=== PATIENT | male | born 1930 | race Caucasian/White ===

== ENCOUNTER 2016-12-17 09:17 | Inpatient (IN) ==
--- NOTE | 2016-12-17 09:51 | Diag Imaging Result Doc PS360 ---
EXAM: CHEST-PORTABLE HISTORY: AMS TECHNIQUE: Portable upright AP COMPARISON: 09/21/2013 FINDINGS: The lungs are well expanded. The heart is not enlarged. The vessels are not distended. No pneumonia. No pleural effusions identified. IMPRESSION: Negative chest Electronically signed by González Barragan 12/17/2016 9:49 AM
[2016-12-17 09:55] LABS: ALLEN TEST YES; BE 6.5 mmoll (-3.0-3.0); BLOOD TYPE ARTERIAL; DRAW SITE L RADIAL; METHB 1.3 % (0.0-1.5); MODALITY ROOM AIR; PCO2(98.6) 44 mmHg (35-45); PO2(98.6) 77 mmHg (60-100); SAMPLE BLOOD; SAO2 97.6 % (95.0-100.0); THB 15.1 g/dL (11.5-17.4); pH(98.6) 7.46 (7.35-7.45)
--- NOTE | 2016-12-17 10:27 | Diag Imaging Result Doc PS360 ---
EXAM: CT HEAD W/O CONTRAST TECHNIQUE: Dose reduction protocol was used. INDICATION: AMS COMPARISON: 04/23/2014 FINDINGS: There is extensive patchy low attenuation in the periventricular and subcortical white matter compatible with advanced microangiopathy, stable. There is no definite acute infarct given the limited sensitivity of CT versus MRI. There is no discrete intracranial mass, mass effect, or intracranial hemorrhage. The surrounding soft tissues and bony structures are essentially unremarkable. IMPRESSION: Stable advanced chronic white matter changes. No evidence of acute intracranial pathology. Electronically signed by Eugenio Chapa 12/17/2016 10:25 AM
[2016-12-17 10:42] LABS: URINE MICRO REVIEW NEEDED? NO; URINE SOURCE CLEAN CATCH
[2016-12-17 10:44] LABS: MANUAL DIFF NEEDED? NO
[2016-12-17 10:47] LABS: BILIRUBIN URINE NEGATIVE (NEGATIVE); BLOOD URINE LARGE (NEGATIVE); COLOR YELLOW; GLUCOSE URINE NEGATIVE (NEGATIVE); LEUKOCYTES URINE LARGE (NEGATIVE); NITRITE URINE NEGATIVE (NEGATIVE); PH URINE 6.5; PROTEIN URINE TRACE mg/dL (NEGATIVE); SP GRAVITY URINE 1.017; TURBIDITY URINE HAZY (CLEAR); UR EPITHELIAL CELLS <10 /HPF (<10); URINE BACTERIA 4+ /HPF; URINE CULTURE NEEDED? YES; URINE RBC TNTC /HPF (<10); URINE WBC TNTC /HPF (<10); UROBILINOGEN URINE NORMAL (NORMAL)
[2016-12-17] MEDS ORDERED: ATIVAN IV ONE ×2 (10:50→12:58)
[2016-12-17 10:53] LABS: BASO% 0.3 % (0.0-0.8); EOS# 0.69 X1000 (0.0-0.7); EOS% 6.4 % (0.0-10.0); HEMATOCRIT 43.3 % (42.0-52.0); HEMOGLOBIN 14.6 g/dL (14.0-18.0); IMM GRAN# 0.03 X1000 (0.0-0.04); IMM GRAN% 0.3 % (0.0-0.5); LYMPH# 2.29 X1000 (1.2-3.4); LYMPH% 21.2 % (20.5-51.1); MCH 30.2 PG (27-31); MCHC 33.7 g/dL (33-37); MCV 89.6 FL (81-99); MONO# 0.72 X1000 (0.11-0.59); MONO% 6.7 % (1.7-9.3); MPV 10.4 FL (7.4-10.4); NEUT% 65.1 % (42.2-75.2); PLT 208 X1000 (130-400); RBC 4.83 XMIL (4.7-6.1)
[2016-12-17] MEDS ORDERED: ROCEPHIN 1 GM/NS 1 GM/50 ML IVPB IV ONE (10:59)
--- NOTE | 2016-12-17 11:03 | EKG Report ---
Test Performed on : 12/17/2016 10:19:38 AM Test Reason : AMS Blood Pressure : / mmHG Vent. Rate : 084 BPM Atrial Rate : 063 BPM P-R Int : 000 ms QRS Dur : 146 ms QT Int : 454 ms P-R-T Axes : 019 -56 110 degrees QTc Int : 536 ms Sinus rhythm. with AV dissociation. and Wide QRS rhythm. with frequent and consecutive premature marv tricular complexes. Left axis deviation Left bundle branch block Abnormal ECG When compared with ECG of 17-NOV-2016 08:30, Wide QRS rhythm. has replaced Sinus rhythm. Unconfirmed Result
[2016-12-17 11:18] LABS: INR 1.01; PROTIME 10.6 Seconds (9.2-11.7); PTT 24.7 Seconds (22.0-36.0)
[2016-12-17 11:21] LABS: AGAP 16; ALBUMIN 4.3 g/dL (3.5-5.0); ALKALINE PHOSPHATASE 56 U/L (32-122); BUN 30 mg/dL (8-22); CALCIUM 9.4 mg/dL (8.8-10.2); CHLORIDE 100 mmol/L (98-107); COSMO 293; GOT 31 U/L (10-34); GPT 32 U/L (10-44); MAGNESIUM 2.2 mg/dL (1.5-2.7); POTASSIUM 4.4 mmol/L (3.5-5.1); SODIUM 143 mmol/L (136-145); TCO2 27 mmol/L (25-35); TOTAL PROTEIN 6.9 g/dL (6.3-8.3)
[2016-12-17 11:28] LABS: CK PROFILE 236 U/L (24-204)
[2016-12-17 11:43] LABS: CK INDEX 1.3 (0.0-2.5); CK-MB 2.96 ng/mL (0.0-5.0)
--- NOTE | 2016-12-17 12:35 | PROVIDER DOCUMENTATION ---
This chart was entered by Torrie Bliss Scribe, acting as scribe for Antonio Irby MD. HPI-General Adult - General Chief Complaint: General Adult Stated Complaint: TREMORS Time Seen by Provider: 12/17/16 09:31 Source: patient Allergies/Adverse Reactions: Patient Allergies Allergy/AdvReac Type Severity Reaction Status Date / Time No Known Allergies Allergy Verified 12/17/16 09:37 Home Medications: Home Medication List Medication Instructions Recorded Confirmed Last Taken Type Nitroglycerin 0.4 mg SL DIRECTED PRN PRN 06/29/12 11/18/16 03/18/11 21:00 History Amlodipine [Norvasc] 5 mg PO DAILY #0 tablet 07/02/12 12/17/16 04/23/14 Rx Pregabalin [Lyrica] 50 mg PO HS #0 capsule 07/02/12 12/17/16 04/22/14 19:00 Rx Aspirin 81 mg PO BID 04/23/14 12/17/16 04/22/14 19:00 History LISINOpril [Prinivil] 10 mg PO BID #0 04/27/14 12/17/16 04/23/14 Rx Modafinil 200 mg PO BID PRN PRN 01/26/15 12/17/16 Unknown History Furosemide [Lasix] 40 mg PO BID 11/18/16 12/17/16 Unknown History Glimepiride [Glimepiride] 2 mg PO BID 12/17/16 12/17/16 Unknown History Lorazepam 0.5 mg PO PRN PRN 12/17/16 12/17/16 Unknown History Rosuvastatin Calcium [Rosuvastatin 10 mg PO QHS 12/17/16 12/17/16 Unknown History Calcium] Sitagliptin Phos/Metformin HCl 1 each PO DAILY 12/17/16 12/17/16 Unknown History [Janumet 50-1,000 mg Tablet] - History of Present Illness -Gen Adult Nature of Presenting Problems: Pt is a 86 year old male who came to the ED with a cc of tremors starting last night. Pt reports he was recently taken off of his parkinsons medications. Pt tremors have worsened. Location of Pain/Injury: reports: upper extremity Quality of Pain: reports: none Severity: reports: moderate Onset/Duration: reports: last night Timing: reports: still present Context/Activities at Onset: reports: none Modifying Factors: improves with: nothing Associated Symptoms: reports: trouble walking, other (tremors) Similar Symptoms Previously?: Yes Recently seen or treated by another doctor?: No Review of Systems - Adult - REVIEW OF SYSTEMS - ADULT Constitutional: denies: chills, fever Eyes: reports: no symptoms reported Ears, Nose, Mouth & Throat: denies: ear pain, throat swelling Cardiovascular: denies: orthopnea, syncope Respiratory: reports: no symptoms reported Gastrointestinal: reports: no symptoms reported Genitourinary: reports: no symptoms reported Musculoskeletal: reports: no symptoms reported Integumentary: reports: no symptoms reported Neurological: reports: tremors. denies: loss of balance, seizure Psychiatric: reports: no symptoms reported Endocrine: reports: no symptoms reported Hematologic/Lymphatic: reports: no symptoms reported Allergic/Immunologic: reports: no symptoms reported All Other Systems: Reviewed and Negative Past History - Adult - PAST MEDICAL HISTORY-ADULT Review of Records: reports: Old Records Reviewed, Nursing Assessment Review Cardiovascular: reports: blood clots (hx of deep venous thrombosis & pulmonary embolism), CAD, HTN Respiratory: reports: sleep apnea Genitourinary: reports: retention (urinary retention with elevated PSA), prostate cancer, other (Bladder problem) Neurological: reports: Parkinson's, other (Diabetic neuropathy) Endocrine/Immune: reports: Diabetes - PRIOR SURGERIES/PROCEDURES Surgical/Procedure History: reports: cardiac stent, orthopedic (extremity) ( internal fixation of the right ankle), joint replacement (knee replacement), other (transurethral resection of the prostates procedure) - IMMUNIZATION STATUS Childhood Immunizations: UTD - SOCIAL HISTORY Smoking: denies Substance Use: none/never Physical Exam-General - PHYSICAL EXAM-ADULT Initial Vital Signs Reviewed: Yes - CONSTITUTIONAL General Appearance: alert, mild distress - EYES Eyes: PERRL/EOMI, pink conjunctivae - HEAD, EARS, NOSE, MOUTH & THROAT HENMT: normocephalic/atraumatic, moist mucous membranes - NECK Neck: non-tender, full range of motion - RESPIRATORY Respiratory: chest non-tender, lungs clear, normal breath sounds - CARDIOVASCULAR Cardiovascular: normal peripheral pulses, regular rate, rhythm - GASTROINTESTINAL (ABDOMEN) Abdominal Exam: normal bowel sounds, non tender, soft - MUSCULOSKELETAL Back Exam: normal inspection, no CVA tenderness Extremity: normal range of motion, other (tremors of the upper extremities) - SKIN Integumentary: normal color, normal turgor - NEUROLOGIC Neurologic: grossly normal - PSYCHIATRIC Psych/Mental Status: normal mood/affect, normal thought content, normal thought process, oriented x 3 Progress - PLAN OF CARE/RESULTS Progress/Plan/Lab Results: Vital Signs - 8 hr 12/17/16 09:28 Temperature 98.4 F Pulse Rate 78 Respiratory Rate 20 Blood Pressure 145/89 O2 Sat by Pulse Oximetry 96 Orders Category Date Time Status Cardiac Monitoring DIRECTED Care 12/17/16 09:33 Active Finger Stick Blood Sugar (ED) DIRECTED Care 12/17/16 09:33 Active Saline Loc NOW Care 12/17/16 09:33 Active CHEST-PORTABLE [RAD] Stat Exams 12/17/16 09:[address] HEAD W/O CONTRAST [CT] Stat Exams 12/17/16 09:33 Ordered ABG [RESP] Routine Lab 12/17/16 09:33 Ordered ALCOHOL BLOOD Stat Lab 12/17/16 09:33 Uncollected BNP [PRO B-NATRIURETIC PEPTIDE] Stat Lab 12/17/16 09:34 Uncollected CBC WITH ELECTRONIC DIFF [HEME] Stat Lab 12/17/16 09:33 Uncollected CK PROFILE [SP CHEM] Stat Lab 12/17/16 09:33 Uncollected COMPREHENSIVE METABOLIC PANEL [CHEM] Stat Lab 12/17/16 09:33 Uncollected LACTATE, PLASMA [CHEM] Stat Lab 12/17/16 09:33 Uncollected MAGNESIUM [CHEM] Stat Lab 12/17/16 09:34 Uncollected PROTIME WITH INR [COAG] Stat Lab 12/17/16 09:33 Uncollected PTT [COAG] Stat Lab 12/17/16 09:33 Uncollected TROPONIN T Stat Lab 12/17/16 09:33 Uncollected URINALYSIS W/POSS RFLX CULT-1 [URINALYSIS] Stat Lab 12/17/16 09:33 Uncollected Pulse Oximetry Stat Oth 12/17/16 09:33 Active EKG [EKG] Stat Ther 12/17/16 09:33 Ordered Result Diagrams: 12/17/16 10:25 12/17/16 10:25 - REASSESSMENT Reassessment #1 Time Reassessed: 10:59 (Pt requested to drink water but was unable to swallow. ) Status: worsening Reassessment #2 Time Reassessed: 12:33 Status: improving (Pt's tremor improved after IV Ativan, but I had 2nd attempt for him to swallow some water, but he choked again. Will admit.) - EKG 1 Time of EKG reading by physician:: 10:19 EKG Read and Signed by:: Antonio Irby EKG Interpretation (*Must complete 3 of following elements*): Abnormal Rate: 84 (w AV dissociation and wide QRS rhythm w frequent and consecutive premature ventricular complexes; left axis deviation) Rhythm: sinus rhythm QRS: LBB - CONSULTS/PCP/HOSPITALIST Notification #1 *Consult/PCP/Hospitalist*: Hospitalist Time Discussed: 12:35 Consult Disposition: Will see in ED, Admit Departure - Departure Date of Disposition Decision: 12/17/16 Time of Disposition Decision: 12:34 DIAGNOSIS: UTI (urinary tract infection), Tremor, Trouble swallowing Disposition: ADMITTED INPATIENT 09 Certified Medical Emergency: Emergent Condition: Stable Referrals and Follow-Ups: Andry Turner DO [Primary Care Provider] - - Critical Care Note This patient required my direct & personal management of CC.: No Attestation - Physician/ RIC Attestation Patient care was provided by Advanced Practice Provider:: No The physician spent face to face time with patient:: Yes Advanced Practice Provider documentation review:: Supervising physician onsite and consulted in the evaluation and care of this patient. The physician did have a face to face encounter with the patient. This chart was documented by the indicated scribe, (Torrie Bliss Scribe) and accurately reflects the services I performed and decisions made by me, Antonio Irby MD, as attested by the provider's signature.
[2016-12-17] MEDS ORDERED: PROVIGIL PO PRN (18:05)
[2016-12-17] MEDS ORDERED: XYLOCAINE-MPF 1% INJ ONE (18:15)
[2016-12-17] MEDS ORDERED: ATIVAN IV PRN (18:17)
--- NOTE | 2016-12-17 21:34 | HISTORY AND PHYSICAL ---
ATTENDING PHYSICIAN: Dr. Andry Turner. ADMITTING PHYSICIAN: Dr. Andry Turner. CHIEF COMPLAINT: Tremulousness, altered mental status, and abnormal urine, suggestive of UTI, in this 86-year-old gentleman. HISTORY OF PRESENT ILLNESS: Mr. 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 Mr. Masterson was seen by myself yesterday in the Internal Medicine Clinic for hip pain, which he has had for several days. He rates the pain at 10/10. The pain comes and goes. Describes it as sharp. States it is like someone is stabbing him with a knife. He states that he was given tramadol by Dr. Ferris, and it does not help, but he continues to take the medication. He tell me that an x- ray of the hip failed to demonstrate anything, and therefore they were concerned that this may be axial disease involving a herniated disk. There was no numbness or weakness in the lower extremities. No history of fall or trauma. He also reported some twitching about the mouth, and some skin tags, which he was interested in getting taking care of. Yesterday, he was noted to be hemodynamically stable, with 114/58, pulse at 82, temperature at 98.5, at 220 pounds. The states this morning that she awoke with reports of the shaking all night. He was anticipated for an MRI of the lumbosacral spine today. However, they called and canceled that procedure, and called an ambulance instead. The reports that his speech was significantly slurred, and that there was a significant amount of involuntary tremor. He has only had water over the past 24 hours, and is complaining of being hungry. Upon presentation to the emergency room, his white blood cell count at 10.8, hemoglobin and hematocrit at 14.6 and 43.3, with platelets at 208,000. PT/INR unremarkable. Urine and blood cultures are pending. Urine is markedly abnormal, with trace proteinuria, large blood, leukocytes too numerous to count, and 4+ bacteria. He is empirically treated with a dose of Rocephin, urine and blood cultures pending, and is admitted to the floor for further observation and medical management. MEDICATIONS ON ADMISSION: Aspirin 81 mg once daily, modafinil 200 mg twice daily, Crestor 10 mg p.o. at bedtime, lisinopril 10 mg p.o. b.i.d., amlodipine 5 mg p.o. daily, Lasix 40 mg once daily, Janumet 5500 1 p.o. b.i.d., Lyrica 75 mg p.o. at bedtime, Amaryl 2 mg p.o. b.i.d., and tramadol 50 1-2 p.o. q.6-8 hours p.r.n. Medications being stopped at the time of admission, including: Tramadol, Lasix, and amlodipine. ALLERGIES: No known drug allergies. SOCIAL HISTORY AND FAMILY HISTORY: Father at 66 years old due to lymphoma. Mother at 99 secondary to old age. He is an only child. No brothers and no sisters. Patient is , with 4 children, 9 grandchildren, 2 great grandchildren. He has been since 1950. He is a nonsmoker, nondrinker. 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 PAST SURGICAL HISTORY: Prostate surgery with cryotherapy in [place] in 2005. Surgery in 2009 for osteoarthritis of the right knee, complicated by DVT. Hernia surgery in 1990. Knee surgery in 1995, with arthroscopy. Vocal cord growth in 1979. REVIEW OF SYSTEMS: Unremarkable, except that noted within the HPI. He does carry a diagnosis of diabetes, complicated by nephropathy, currently being managed with Amaryl and Janumet. There has been some discussion with regards to tremor, likely being parkinsonism-mediated. However, the patient insists that the medication is not beneficial, and the local neurologist obliged the patient and stopped the medication. I do think he would benefit from restarting this, and this has been discussed. He does have a history of coronary disease, per cardiac cath, with stent placements in the right coronary in 2008. Also, has issues with regards to cardiomyopathy and advanced valvular heart disease and pulmonary hypertension. His last annual exam of record is noted to be August 2015. PHYSICAL EXAMINATION: VITAL SIGNS: Blood pressure 155/95, temperature 98.4 degrees, respirations at 20. Patient saturating 99% on room air. Weight at 215. HEENT: Patient with some generalized some twitching, and then baseline tremor, both of the left upper extremity and left lower extremity. Some slurred speech is noted, but no evidence of facial droop. Oral mucosal membranes are noted to be extremely dry. NECK: Soft and supple, without lymphadenopathy or bruits. CARDIOVASCULAR: Regular rate. However, presence of systolic murmur, consistent with patient's valvular history. LUNGS: Decreased breath sounds bilaterally, without wheezes, rhonchi, or rales. ABDOMEN: Soft, with tenderness in the bilateral lower quadrants, without rebound, guarding, or rigidity. EXTREMITIES: Benign, without clubbing, cyanosis, or edema. NEUROLOGICAL: Resting tremor of the left upper and right lower extremity, which is exacerbated with movement. This is known to be present historically, and is not new. SKIN: Without petechiae, rash, or lesions. IMPRESSION: Tremor, thought to be acute illness-mediated, specifically urinary tract-related and dysarthria, which may be related to subacute infectious state. However, central etiologies should be considered. A CT scan of the head is unremarkable. Still maintaining an index of suspicion, with him having a history of prostate cancer. His most recent PSA in July of last year greater than 5.23, his highest to date. He is admitted to the Internal Medicine Service and empirically treated for a urinary tract infection. He received a dose of Rocephin in the emergency room, with blood cultures and urine cultures pending. We will continue to follow with regards to the variety of his other medical problems. I have also elected to restart the Sinemet, and will likely continue that at the time of discharge. He did not get his MRI this morning, as discussed yesterday in the clinic, considering his history of spondylosis dating back to 2010, and pain that is unlike any other pain that he has had in the past. We did discuss the possibility of repeating the MRI at some point during this hospitalization. However, we may have to defer and do this as an outpatient, as previously intended. DISPOSITION: The patient understands the course of treatment and plan. No further issues at this time. I did see the patient at the bedside, and the was in attendance, and was able to corroborate the history of the admission. TIME SPENT: Total time spent on the floor was more than 75 minutes in interview, exam, evaluation, dictation, and review of ER record. cc: Andry Turner DO
[2016-12-17] MEDS: LYRICA PO SCH (23:19)
[2016-12-17] MEDS: POTASSIUM CHLORIDE 10 MEQ in D5W 1,000 ML IV SCH (23:19)
[2016-12-17] MEDS: SINEMET 25/100 PO SCH (23:19)
[2016-12-17] MEDS: PRINIVIL PO SCH (23:20)
[2016-12-17] MEDS: CRESTOR PO SCH (23:20)
[2016-12-17] MEDS: ASPIRIN PO SCH (23:20)
[2016-12-18 06:22] LABS: MANUAL DIFF NEEDED? NO
[2016-12-18 06:31] LABS: BASO% 0.6 % (0.0-0.8); EOS% 9.8 % (0.0-10.0); HEMATOCRIT 41.6 % (42.0-52.0); HEMOGLOBIN 13.8 g/dL (14.0-18.0); IMM GRAN# 0.02 X1000 (0.0-0.04); IMM GRAN% 0.2 % (0.0-0.5); LYMPH# 2.03 X1000 (1.2-3.4); LYMPH% 24.8 % (20.5-51.1); MCH 29.9 PG (27-31); MCHC 33.2 g/dL (33-37); MONO# 0.81 X1000 (0.11-0.59); MONO% 9.9 % (1.7-9.3); MPV 10.2 FL (7.4-10.4); NEUT% 54.7 % (42.2-75.2); PLT 177 X1000 (130-400); RBC 4.62 XMIL (4.7-6.1)
[2016-12-18 07:03] LABS: AGAP 10; ALKALINE PHOSPHATASE 52 U/L (32-122); BUN 28 mg/dL (8-22); CALCIUM 8.9 mg/dL (8.8-10.2); CHLORIDE 99 mmol/L (98-107); COSMO 287; GOT 22 U/L (10-34); GPT < 5 U/L (10-44); POTASSIUM 4.6 mmol/L (3.5-5.1); SODIUM 140 mmol/L (136-145); TCO2 31 mmol/L (25-35); TOTAL BILIRUBIN 0.27 mg/dL (0.20-1.00); TOTAL PROTEIN 6.2 g/dL (6.3-8.3)
[2016-12-18 07:47] LABS: CK INDEX 0.9 (0.0-2.5); CK-MB 2.72 ng/mL (0.0-5.0)
[2016-12-18] MEDS: JANUVIA PO SCH (08:27)
[2016-12-18] MEDS: NORVASC PO SCH (08:28)
[2016-12-18] MEDS: ASPIRIN PO SCH ×2 (08:28→20:19)
[2016-12-18] MEDS: GLUCOPHAGE PO SCH (08:28)
[2016-12-18] MEDS: SINEMET 25/100 PO SCH ×2 (08:28→20:18)
[2016-12-18] MEDS: PRINIVIL PO SCH ×2 (08:29→20:20)
[2016-12-18] MEDS ORDERED: ROCEPHIN IM SCH (09:00)
[2016-12-18] MEDS ORDERED: ROCEPHIN IV SCH (09:00)
--- NOTE | 2016-12-18 09:28 | PROGRESS NOTE ---
DATE: 12/18/2016 Hospital day #2, date of rounds 12/18/2016. INDICATION FOR PROLONGED HOSPITALIZATION: Ongoing management for UTI, the patient having been admitted to the internal medicine service yesterday through the ER for shaking chills, elevated white blood cell count and abnormal urine. The urine and blood cultures are pending at this time. The patient looks subjectively better, more like his baseline. He has no complaints or concerns this morning other than wanting to go home and he did well overnight. VITAL SIGNS: This morning, blood pressure 147/76, respirations at 16, pulse at 62, temperature at 98.7 degrees, T-max 98.4 degrees. Ins and outs of 616 in and 840 out, for -224. MEDICATIONS: Reviewed, including Norvasc, aspirin, re-initiation of Sinemet, Rocephin, lisinopril, Ativan, Glucophage, Provigil, Lyrica, Crestor, and Januvia. PHYSICAL EXAMINATION: General: Exam this morning, the patient is alert, oriented, and again returning to his neurologic baseline. He is without complaints or concerns. HEENT: Unremarkable. Cardiovascular: Regular rate and rhythm. Lungs: Clear. Abdomen: Soft, nontender. Extremities: Benign without clubbing, cyanosis, or edema. Neurological: Cranial nerves 2-12 appear to be grossly intact. IMPRESSION: An 86-year-old, with episode of shaking chills and abnormal urine, accompanied by altered mental status yesterday presumed to be infectious mediated. The patient evaluated with a CT scan, found to be unremarkable. Chest x-ray found to be unremarkable. Blood and urine cultures are pending, but empirically started on Rocephin pending return of urinary and blood cultures. He is markedly better this morning and requesting consideration for discharge to home. However, I would like to see his urine culture and blood cultures return before making that decision. We will be discontinuing the Lara, allowing him to get up and ambulate ad-juan carlos. No additional recommendations or concerns at this time. Of interest, he did miss his MRI appointment for yesterday regarding low back pain. This certainly could of been urinary mediated. We will continue to follow clinically in that regard. No additional recommendations or concerns at this time. Note is dictated on the morning of rounds. cc: Andry Turner DO
[2016-12-18] MEDS: ROCEPHIN 1 GM/NS 1 GM/50 ML IVPB IV SCH (16:06)
[2016-12-18] MEDS: POTASSIUM CHLORIDE 10 MEQ in D5W 1,000 ML IV SCH (16:07)
[2016-12-18] MEDS: CRESTOR PO SCH (20:18)
[2016-12-18] MEDS: LYRICA PO SCH (20:18)
[2016-12-19 07:28] VITALS: BP 172/65
[2016-12-19] MEDS: PRINIVIL PO SCH (09:55)
[2016-12-19] MEDS: SINEMET 25/100 PO SCH (09:56)
[2016-12-19] MEDS: NORVASC PO SCH (09:56)
[2016-12-19] MEDS: JANUVIA PO SCH (09:56)
[2016-12-19] MEDS: ASPIRIN PO SCH (09:56)
[2016-12-19] MEDS: GLUCOPHAGE PO SCH (09:56)
[2016-12-19] MEDS: ROCEPHIN 1 GM/NS 1 GM/50 ML IVPB IV SCH (12:20)
--- NOTE | 2016-12-19 19:51 | DISCHARGE SUMMARY ---
ADMISSION DATE: 12/17/2016 DISCHARGE DATE: 12/19/2016 DISCHARGE DIAGNOSIS: 1. Urinary tract infection with culture pending at the time of discharge, the patient having received 2 days of IV Rocephin. He was admitted for altered mental status and had no signs of systemic inflammatory response syndrome, sepsis or bacteremia. Blood cultures are noted to be negative at the time of discharge. He will be discharged on Cipro 250 mg twice daily in anticipation of final results of culture. 2. Altered mental status. Likely multifactorial secondary to infectious process, use of tramadol for low back pain and recent cessation of dopamine. 3. Tremor, likely parkinsonism mediated with exacerbation with sensation of Sinemet. Re- initiation of Sinemet 25/100, 1/2 p.o. b.i.d. with general improvement in baseline tremor. 4. Dysphagia, presumed to be parkinsonism mediated. Intervally improved. The patient without swallowing difficulties at the time of discharge. 5. Lumbago with history of spondylosis, recent exacerbation of low back pain. Patient anticipated for magnetic resonance imaging next week as an outpatient with interval follow up in the clinic as previously scheduled. 6. Anemia not otherwise specified. This may be dilutional in nature. Discharge hemoglobin and hematocrit at 13.8 and 41.6. Outpatient followup is indicated. 7. History of diabetes, complicated by nephropathy. 8. History of prostate cancer, status post brachytherapy. DISCHARGE MEDICATIONS: Lyrica 50 mg p.o. at bedtime. Amlodipine 5 mg p.o. daily. Aspirin 81 mg p.o. b.i.d. Lisinopril 10 mg p.o. b.i.d. Modafinil 200 mg b.i.d. Lasix 40 mg twice daily. Amaryl 2 mg twice daily. Crestor 10 mg p.o. at bedtime. Ativan 0.5 mg p.o. daily p.r.n. Janumet one p.o. daily. Additional medications including Cipro 250 mg p.o. b.i.d. for 7 days and Sinemet 250/100, 1/2 tablet twice daily. PROCEDURES DURING ADMISSION: CT scan of the head in emergency room on admission for altered mental status: Advanced chronic white matter changes with no evidence of acute intracranial pathology. This is a noncontrasted CT scan. CONSULTATIONS DURING ADMISSION: None. HOSPITAL COURSE: Mr. Masterson presented to the emergency room on the 12/17 with altered mental status, tremor and abnormal urine, suggestive of UTI, but concern for SIRS/sepsis. He did not manifest a clinical criteria for those two entities; however, his urine was abnormal and did grow out organism which is pending at the time of discharge. He was started on IV Rocephin and transitioned to oral quinolone, specifically Cipro 250 mg twice daily at the time of discharge. With regards to his altered mental status, that seemed to clear rather expeditiously with fluids, initiation of IV antibiotics and time. Considering his tremor and marked response historically to dopamine replacement, it was felt that he would benefit from re-initiation of Sinemet. This was started at 25/10 1/2 tablet twice daily with general improvement in his tremor. I have recommended that he continue both with the Cipro and the Sinemet at the time of discharge with interval follow up. With regards to the MRI of his lumbosacral spine which he missed last week secondary to his admission, we will work towards getting that rescheduled this next week prior to seeing him later in the week and post hospital follow up. No new and/or additional recommendations at this time. DISPOSITION: Patient is released with interval follow-up anticipated in the next 7 days in the Internal Medicine Clinic as it relates to post hospital discharge as well as MRI follow up for low back pain. No additional recommendations or concerns. Patient understands the course of treatment and plan. Note is dictated on the morning of discharge. cc: Andry Turner DO
--- NOTE | 2016-12-20 07:20 | EKG Report ---
Test Performed on : 12/18/2016 06:19:48 AM Test Reason : CAD Blood Pressure : / mmHG Vent. Rate : 068 BPM Atrial Rate : 068 BPM P-R Int : 176 ms QRS Dur : 160 ms QT Int : 502 ms P-R-T Axes : 000 -53 114 degrees QTc Int : 533 ms Sinus rhythm. with premature atrial complexes. Left axis deviation Left ventricular hypertrophy with QRS widening and repolarization abnormality Possible Lateral infarct , age undetermined Abnormal ECG When compared with ECG of 17-DEC-2016 10:19, (Unconfirmed) Sinus rhythm. has replaced Wide QRS rhythm. Confirmed by Andry Turner DO ([id number]) on 12/20/2016 6:19:26 PM
== END 2016-12-19 11:28 | disposition home or self-care (01) ==
LOC: SUPCPDRO → ED 09:17 → 4N 14:05
PROVIDERS: ADMIT Internal Medicine; ATTEND Internal Medicine

== ENCOUNTER 2018-06-29 10:47 | Inpatient (IN) ==
--- NOTE | 2018-06-29 11:32 | EKG Report ---
Test Performed on : 06/29/2018 11:08:36 AM Test Reason : ams Blood Pressure : / mmHG Vent. Rate : 061 BPM Atrial Rate : 061 BPM P-R Int : 168 ms QRS Dur : 154 ms QT Int : 494 ms P-R-T Axes : 065 -53 116 degrees QTc Int : 497 ms Sinus rhythm. with marked sinus arrhythmia. with occasional premature ventricular complexes. Left axis deviation Left bundle branch block Abnormal ECG When compared with ECG of 30-MAY-2018 08:17, premature ventricular complexes. are now present premature supraventricular complexes. are no longer present Nonspecific T wave abnormality no longer evident in Inferior leads T wave inversion less evident in Lateral leads Unconfirmed Result
[2018-06-29 11:46] LABS: BASO# 0.02 X1000 (0.0-0.2); BASO% 0.2 % (0.0-0.8); EOS# 0.13 X1000 (0.0-0.7); EOS% 1.5 % (0.0-10.0); HEMATOCRIT 39.6 % (42.0-52.0); HEMOGLOBIN 13.1 g/dL (14.0-18.0); LYMPH# 1.24 X1000 (1.2-3.4); LYMPH% 14.6 % (20.5-51.1); MCH 29.3 PG (27-31); MCHC 33.1 g/dL (33-37); MCV 88.6 FL (81-99); MONO# 0.76 X1000 (0.11-0.59); MPV 10.4 FL (7.4-10.4); NEUT# 6.33 X1000 (1.4-6.5); NEUT% 74.7 % (42.2-75.2); PLT 154 X1000 (130-400); RBC 4.47 XMIL (4.7-6.1); RDW 12.7 % (11.5-14.5); WBC 8.48 X1000 (4.8-10.8)
[2018-06-29 11:55] LABS: PTT 26.5 Seconds (22.3-41.8)
--- NOTE | 2018-06-29 11:58 | Diag Imaging Result Doc PS360 ---
EXAM: CHEST-PORTABLE 06/29/2018 HISTORY: ams TECHNIQUE: AP portable at 1151 COMMENT: The interstitial pulmonary edema and alveolar opacity which was present on 05/02/2017 is no longer present. The inspiration is actually less optimal on the current examination. There is a cardiac loop recorder projected over the left heart. IMPRESSION: No evidence of acute disease. Electronically signed by Addy Vazquez 06/29/2018 11:55 AM
[2018-06-29 12:02] LABS: AGAP 11; ALB/GLOB RATIO 2.3; ALBUMIN 4.1 g/dL (3.5-5.0); ALKALINE PHOSPHATASE 64 U/L (32-122); BUN 22 mg/dL (8-22); CALCIUM 9.2 mg/dL (8.8-10.2); CHLORIDE 107 mmol/L (98-107); COSMO 294; CREATININE 0.8 mg/dL (0.7-1.2); ESTIMATED GFR > 60; GLUCOSE 199 mg/dL (70-104); GOT 33 U/L (10-34); GPT 51 U/L (10-44); POTASSIUM 4.4 mmol/L (3.5-5.1); SODIUM 143 mmol/L (136-145); TCO2 25 mmol/L (25-35); TOTAL PROTEIN 5.9 g/dL (6.3-8.3)
[2018-06-29 12:05] LABS: CK PROFILE 272 U/L (24-204)
--- NOTE | 2018-06-29 12:08 | Diag Imaging Result Doc PS360 ---
CT HEAD W/O CONTRAST - 06/29/2018 INDICATION: Head injury COMPARISON: 12/17/2016 FINDINGS: There is a new focal round hypodensity at the anterior pole of the left thalamus. Otherwise stable diffuse cerebral atrophy. Stable periventricular white matter chronic microvascular disease. The skull is intact. The sinuses are grossly clear. IMPRESSION: Possible recent lacunar infarction to the left thalamus. Consider further evaluation with a brain MRI. This exam was performed using automated exposure control, adjustment of mA or kV according to patient size, and/or use of iterative reconstruction technique Electronically signed by Geronimo Jonas 06/29/2018 12:05 PM
[2018-06-29 12:19] LABS: CK INDEX 1.1 (0.0-2.5); CK-MB 2.95 ng/mL (0.0-5.0)
[2018-06-29] MEDS ORDERED: SODIUM CHLORIDE 0.9% INJ ONE (13:04)
[2018-06-29] MEDS ORDERED: NS 1,000 ML IV ONE ×2 (13:04→18:00)
[2018-06-29] MEDS ORDERED: ASPIRIN PO ONE (13:04)
[2018-06-29] MEDS ORDERED: PEPCID IV ONE (13:04)
[2018-06-29] MEDS ORDERED: MORPHINE IV ONE (15:41)
[2018-06-29] MEDS ORDERED: ZOFRAN IV ONE (15:42)
[2018-06-29] MEDS ORDERED: NS 1,000 ML IV SCH (16:45)
[2018-06-29] MEDS ORDERED: ZOFRAN IV PRN (18:00)
--- NOTE | 2018-06-29 19:09 | HISTORY AND PHYSICAL ---
ATTENDING/ADMITTING PHYSICIAN: Andry Turner DO. CHIEF COMPLAINT: Left-sided eye ophthalmic CVA. HISTORY OF PRESENT ILLNESS: Mr. 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 History of spondylosis of the lumbosacral region; history of prostate cancer, history of pulmonary hypertension. History of parkinsonism. History of noncompliance with dietary regime. History of elevated liver enzymes. History of mitral valve disorder and aortic valve disorder. History of cognitive decline. History of cardiomyopathy, history of atherosclerotic peripheral vascular disease as well as atherosclerotic coronary artery disease. He presents to the emergency room via ambulance with the daughter and at the bedside. The history is such that he was at Dr. Roth's office receiving some balance testing on Tuesday for evaluation of vertigo that had been present for about 4 days. He was to complete 3 tests by 10:30 or 11 on Tuesday morning. He was noted to be more quiet than normal. He was still at the ENT office. They went out to lunch. He was unable to speak at that time, but was pointing to objects and he was subsequently unable to complete the remainder of the test at the [facility]. The family is concerned that there may have been some type of central event which happened during the morning of Tuesday. Last night, he went to the restroom locked the door behind him and was not found for several hours, perhaps up to 3 hours having been found down after reportedly falling off the commode and hitting his head. The was unable to get him up from lying on the floor provided him a comfortable mat in the bathroom and allowed him to spend the night on the floor. This morning, the son and daughter were unable to get the parent off the floor and 911 was called. He was brought into the emergency room. He underwent some initial diagnostic testing including labs, CT scan of the head and a chest x-ray. CT scan of the head compared to previous scan, and a new area in the left thalamic region was noted. I am uncertain with his prostate history, if this is truly an acute event or whether this might represent the potential for a metastatic lesion in the brain. Nevertheless, based on his neurologic deficit and likely inability to return home and return to previous quality of life, he is admitted to the internal medicine service for CVA with neurologic workup evaluation and recommendations for long- term placement versus rehab versus hospice. I have advised the family that he is not considered a candidate for discharge to home with interval follow up secondary to increased skill care and nursing needs. He will be admitted to the internal medicine service with final disposition after neurologic opinion. MEDICATIONS ON ADMISSION: Include modafinil 200 mg p.o. b.i.d., Co-Q10 100 mg once daily. Janumet one p.o. b.i.d., Amaryl 1 mg 1 p.o. b.i.d., amlodipine 5 mg p.o. daily. Lyrica 75 mg p.o. at bedtime. Plavix 75 mg for recent stenting in April 2017. Carvedilol 25 mg b.i.d., iron sulfate 325 mg once daily. Lisinopril 10 mg p.o. b.i.d., Sinemet 100/25, 1 p.o. b.i.d., bicalutamide 50 mg once daily. Lupron, Lasix 40 mg every other day. Vitamin B12 injection 1000 mcg as per clinic protocol. Eliquis 5 mg twice daily for paroxysmal atrial fibrillation. Rosuvastatin 10 mg once daily. FAMILY HISTORY: Father at 66, cause lymphoma. Mother at 99, cause old age. Brother as a child, cause unknown and no sisters. He is the sole living member of his family. SOCIAL HISTORY: Patient is , with 4 children, 2 girls and 2 boys and 17 grandchildren. He has been for 68 years as of 2019. He is a nonsmoker and nondrinker. He is fully retired from [employer] in June 2017. 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 Travel history is unremarkable. PAST SURGERY: Cataract surgery in 2012. Hernia surgery in 1990. Knee surgery in 1995. Right knee replacement in 2009. Prostate surgery with cryotherapy only in 2005. TURP in 2013. Ankle fracture with screws and pins in July 2013. Root canal in November 2016. Patient's last annual wellness visit noted to be October 2017 and last hand finisher physical noted to be January 2018. Patient having been recently seen in the Internal Medicine Clinic in early May for poorly controlled sugar, a random nonfasting sugar at 283. His hemoglobin A1c have been ranging between 6.8 and 7.5, as recently as January at 7.0 with an average blood sugar of 154. Patient reports that his sugar was elevated on the morning of presenting to Hematology-Oncology secondary to not being fasting. He was noted at that time to have a 9 pound weight gain since early April likely due to dietary and lifestyle indiscretion. REVIEW OF SYSTEMS: Is unremarkable except that noted within the HPI. Some additional findings including having seen the patient in early April for what he describes as facial twitching for several months, waking him up at night. He denied any drawing sensation or spasm involving the upper or lower extremities. An extensive workup from cardiology and neurology. It was uncertain as to whether this represented a primary neurologic and/or cardiology problem. He was subsequently seen about 4 to 5 days later with reports of facial twitching again, including MRIs of the brain, as well as carotid ultrasounds which were noted to be unremarkable. We talked about this being a component of parkinsonism. We talked about cranial nerve irritability and some type of electrolyte and/or medicine side effect. We did discuss the possibility of carbamazepine. He did report that the spasm was not painful, but becoming unpredictable and longer in its duration. He is unable to voice in the emergency room whether he has experienced anymore of these facial spasms or twitching and this history was not elicited directly from the family. A 12-point review of systems is otherwise unremarkable. He recently had a loop monitor placed for possible symptomatic bradycardia resulting in dizziness and presyncope. I am uncertain as to when his last interrogation was performed. VITALS: As per chart. LABORATORY: As per chart. PHYSICAL EXAMINATION: GENERAL: Bedside exam performed in the tucker in the emergency room. HEENT: Limited HEENT exam is noted. CARDIOVASCULAR: With irregularly irregular rhythm. LUNGS: Clear. ABDOMEN: Protuberant with nonspecific tenderness without rebound or guarding localizing to the right lower quadrant. EXTREMITIES: Benign, without clubbing, cyanosis, or edema. NEUROLOGIC: Motor strength appears to be equal bilaterally in the upper and lower extremities. Patient has no visual defect, both with uniocular and biocular vision. Cranial nerves 2-12 are not assessed. SKIN: Without petechiae, rash, or lesions. He does have a small 7-8 mm horizontal laceration on the left lateral spiritism, likely due to recent trauma. IMPRESSION: An 87-year-old, with history of fall, etiology is queried. It is uncertain as to whether this represents a vasovagal episode or true central event. He has a new findings on the CT scan which may represent a left-sided thalamic stroke. I am also concerned with his prostate cancer history, that this might represent a central metastatic lesion. RECOMMENDATIONS AND PLAN: He is already on a variety of anticoagulation including Eliquis for atrial fibrillation, clopidogrel for stenting approximately 12+ months ago and low dose aspirin. He also continues on statin therapy and multiple blood pressure medications. He will be admitted to the internal medicine service with neurologic consultation and opinion. I do feel that the cardiac echo and carotid ultrasounds will be of little benefit considering that he has had multiple cardiac and vascular studies over the past 6 to 12 months in investigation of his presyncopal symptoms. I do not think that the patient is a good candidate for returning to home and will be seeking rehab placement and/or long-term placement or further discussion with the family regarding home hospice. The daughter and understand the course of treatment and plan. No further issues at this time. Note is dictated on the evening of admission. cc: Andry Turner DO
[2018-06-29] MEDS: GLUCOPHAGE PO SCH (20:42)
[2018-06-29 20:47] LABS: URINE SOURCE CATH
[2018-06-29 20:56] LABS: BILIRUBIN URINE NEGATIVE (NEGATIVE); BLOOD URINE MODERATE (NEGATIVE); COLOR STRAW; GLUCOSE URINE NEGATIVE (NEGATIVE); KETONE URINE NEGATIVE (NEGATIVE); LEUKOCYTES URINE SMALL (NEGATIVE); NITRITE URINE NEGATIVE (NEGATIVE); PROTEIN URINE 50 mg/dL (NEGATIVE); TURBIDITY URINE CLEAR (CLEAR); UROBILINOGEN URINE NORMAL (NORMAL)
[2018-06-29 20:57] LABS: UR EPITHELIAL CELLS <10 /HPF (<10); URINE BACTERIA 1+ /HPF; URINE RBC 20-40 /HPF (<10); URINE WBC 20-40 /HPF (<10)
[2018-06-29] MEDS: SINEMET 25/100 PO SCH (21:06)
[2018-06-29] MEDS: PRINIVIL PO SCH (21:06)
[2018-06-29] MEDS: COREG PO SCH (21:07)
[2018-06-29] MEDS: CRESTOR PO SCH (21:07)
[2018-06-30 06:36] LABS: BASO# 0.02 X1000 (0.0-0.2); BASO% 0.2 % (0.0-0.8); EOS# 0.35 X1000 (0.0-0.7); EOS% 3.7 % (0.0-10.0); HEMATOCRIT 40.5 % (42.0-52.0); HEMOGLOBIN 13.1 g/dL (14.0-18.0); LYMPH# 1.77 X1000 (1.2-3.4); LYMPH% 18.9 % (20.5-51.1); MCH 29.4 PG (27-31); MCHC 32.3 g/dL (33-37); MCV 90.8 FL (81-99); MONO# 1.22 X1000 (0.11-0.59); MPV 10.5 FL (7.4-10.4); NEUT# 6.02 X1000 (1.4-6.5); NEUT% 64.2 % (42.2-75.2); PLT 160 X1000 (130-400); RBC 4.46 XMIL (4.7-6.1); WBC 9.38 X1000 (4.8-10.8)
[2018-06-30 06:42] LABS: INR 1.03; PROTIME 14.3 Seconds (11.0-16.0)
[2018-06-30 07:22] LABS: AGAP 11; ALB/GLOB RATIO 1.7; ALBUMIN 3.8 g/dL (3.5-5.0); ALKALINE PHOSPHATASE 63 U/L (32-122); BUN 18 mg/dL (8-22); CALCIUM 8.7 mg/dL (8.8-10.2); CHLORIDE 109 mmol/L (98-107); COSMO 293; CREATININE 0.8 mg/dL (0.7-1.2); ESTIMATED GFR > 60; GLUCOSE 145 mg/dL (70-104); GOT 25 U/L (10-34); IRON SATURATION 23 %; SODIUM 145 mmol/L (136-145); TCO2 25 mmol/L (25-35); TIBC 244 ug/dL; TOTAL BILIRUBIN 0.32 mg/dL (0.20-1.00); TOTAL IRON 56 ug/dL (53-167); TOTAL PROTEIN 6.1 g/dL (6.3-8.3); UNBOUND IRON 188 ug/dL (112-346)
[2018-06-30 07:23] LABS: GPT 14 U/L (10-44)
[2018-06-30 07:38] LABS: FERRITIN 82 ng/mL (30-400)
--- NOTE | 2018-06-30 08:37 | PROGRESS NOTE ---
DATE: 06/30/2018 INDICATION FOR PROLONGED HOSPITALIZATION: Status post left thalamic/lacunar infarct. Awaiting neurologic opinion, recommendations and final rehab disposition. OVERNIGHT EVENTS: Events overnight are unremarkable. Patient does appear to be somewhat more awake this morning, but still Anarthric. VITALS THIS MORNING: Blood pressure 146/45, pulse at 53, temperature at 97.8 degrees, T-max at 98.4 degrees, saturating 100% on nasal cannula. ADDITIONAL LABORATORIES: For this morning, white blood cell count 9.38, H and H at 13.1 and 40.5 with platelets at 160. PT/INR are unremarkable. Sodium 145, potassium 4.0, chloride 109, bicarbonate 25. BUN and creatinine at 18 and 0.8, glucose ranging between 145 and 199. Calcium at 8.7, iron panel is unremarkable. AST and ALT have normalized from admission 33 and 51 to 25 and 14 respectively. Triglycerides at 172, total cholesterol 134, HDL at 35, LDL at 74. Normal B 12. Urinalysis with evidence of protein and blood and 1+ bacteria. We will be ordering a culture and offering antibiotic for positive findings. PHYSICAL EXAMINATION: General: Patient is repositioned in bed, still uncommunicative, although he appears more alert. There are periods in the conversation where he appears to be more hypersomnolent. Cardiovascular: Irregularly irregular rhythm with a soft systolic murmur at the right upper sternal border. Lungs: Clear. Abdomen: With nonspecific tenderness in the bilateral lower quadrants, left greater than right. Extremities: Benign for clubbing cyanosis or edema. Neurologic: There does appear to be some spasticity of the left upper extremity, most noticeable in the hand. 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 I am uncertain as to whether this is a volitional difference. Negative Babinski's bilaterally. Neurological opinion pending at this time. DIAGNOSTICS: Additional studies pending at this time including carotids and cardiac echo. Most recent cardiac echo noted to be November of 2017 with evidence of systolic dysfunction with an EF at 45%, aortic valve sclerosis, mild mitral regurgitation. A bubble study performed was noted to be negative. Most recent carotid Doppler noted to be 09/17/2016, although he has had several outside of the facility. Evidence of peripheral vascular disease involving the distal common and internal carotid are noted, but without any evidence of hemodynamically compromising disease. Most recent MRI of the head is noted to be January of 2018 showing areas of micro hemorrhages perhaps secondary to amyloid angiopathy. No evidence at that time of intracranial metastatic disease. Last CT scan prior to this admission noted to be November of 2016. At that time, no definitive acute infarct. No discrete mass or mass effect. The area noted on admission CT scan within the anterior pole of the left thalamus is new when compared to historical study. Patient continues to be contraindication for further diagnostic imaging, such as an MRI secondary to recent implantation in May of a loop monitor. IMPRESSION: An 87 year old with acute left-sided thalamic infarct. Further neurologic opinion pending at this time. He is hemodynamically stable and does not appear to have neurologically digressed over the past 12 hours since admission. Further evaluation with followup echo and carotid ultrasound are pending at the time of dictation. Urinalysis for possible concurrent urinary tract infection is pending at the time of dictation. We will be adding a follow-up creatinine kinase to ensure resolution. I suspect that the creatinine kinase elevation on admission was secondary to a combination of his fall. Overall, prognosis is likely fair to poor considering his other comorbidities, including atrial fibrillation, systolic congestive failure, parkinsonism and prostate cancer. Conversation with the has included long-term placement versus an attempt at rehabilitation versus returning to home with home hospice. No further issues or recommendations at this time. The understands the course of treatment and plan. cc: Andry Turner DO
--- NOTE | 2018-06-30 12:40 | PROVIDER DOCUMENTATION ---
This chart was entered by Tomeka Caceres Scribe, acting as scribe for Deven Brennan MD. HPI-General Adult - General Chief Complaint: Altered Mental Status Stated Complaint: fall Time Seen by Provider: 06/29/18 11:03 Source: patient Allergies/Adverse Reactions: Patient Allergies Allergy/AdvReac Type Severity Reaction Status Date / Time No Known Allergies Allergy Verified 05/30/18 08:15 Home Medications: Home Medication List Medication Instructions Recorded Confirmed Last Taken Type Amlodipine [Norvasc] 5 mg PO DAILY #0 tablet 07/02/12 05/31/18 05/30/18 06:00 Rx Aspirin 81 mg PO DAILY 04/23/14 05/31/18 05/31/18 08:25 History LISINOpril [Prinivil] 10 mg PO BID #0 04/27/14 05/31/18 05/31/18 08:00 Rx Rosuvastatin Calcium 10 mg PO QHS 12/17/16 05/30/18 04/18/17 17:00 History Sitagliptin Phos/Metformin HCl 1 each PO BID 12/17/16 05/31/18 05/31/18 08:00 History [Janumet 50-1,000 mg Tablet] Carbidopa/Levodopa [Sinemet 25/100] 1 each PO BID 04/19/17 05/31/18 05/31/18 08: 00 History Carvedilol [Coreg] 25 mg PO BID 04/19/17 05/31/18 05/31/18 08:00 History Clopidogrel Bisulfate [Clopidogrel] 75 mg PO DAILY 04/19/17 05/31/18 05/30/18 08 :00 History Furosemide [Lasix] 40 mg PO DAILY 04/19/17 05/31/18 05/31/18 08:00 History Modafinil [Provigil] 200 mg PO BID 04/19/17 05/31/18 05/31/18 08:00 History Ubidecarenone [Co Q-10] 100 mg PO DAILY 04/19/17 05/31/18 05/31/18 08:00 History Ascorbic Acid [Vitamin C] 500 mg PO DAILY 05/30/18 05/31/18 05/31/18 08:00 History Bicalutamide 50 mg PO DAILY 05/30/18 05/31/18 05/31/18 08:00 History Garlic 1,000 mg PO DAILY 05/30/18 05/31/18 05/31/18 History Glimepiride [Amaryl] 1 mg PO BID 05/30/18 05/30/18 Unknown History Glucosamine/D3/Boswellia Yaa 1 each PO DAILY 05/30/18 05/31/18 05/31/18 08:00 History [Osteo Bi-Flex Caplet] Metformin [Glucophage] 500 mg PO BID CC 05/30/18 05/31/18 05/31/18 08:00 History Nitroglycerin [Nitrostat] 0.4 mg SL PRN PRN 05/30/18 05/31/18 Unknown History Pregabalin [Lyrica] 75 mg PO HS 05/30/18 05/31/18 05/30/18 20:00 History - History of Present Illness -Gen Adult Nature of Presenting Problems: 87 yowm presents to the ed via ems for fall last night and intermittent ams. pt last niht made him a pallet on the floor and pt slepted in the floor all night. on exam pt denies any pain and is alert to a/o x1. pt is pleasant and daughter is at bedside an is in waiting room. daughter sts pt has been more weak recently and has noticed the confusion and not wanting to speak as much Location of Pain/Injury: reports: generalized (weakness but no pain) Quality of Pain: reports: none Severity: reports: mild Onset/Duration: reports: last night Timing: reports: still present Context/Activities at Onset: reports: light activity Modifying Factors: improves with: nothing Associated Symptoms: reports: weakness, trouble walking. denies: arm pain, back /neck pain, chest pain, diarrhea, headaches, nausea, vomiting Similar Symptoms Previously?: Yes (pt has had frequent falls recently) Recently seen or treated by another doctor?: No Review of Systems - Adult - REVIEW OF SYSTEMS - ADULT ROS:: ROS per family Constitutional: denies: chills, fever Eyes: reports: no symptoms reported Ears, Nose, Mouth & Throat: reports: no symptoms reported Cardiovascular: denies: chest pain, palpitations Respiratory: denies: shortness of breath, wheezing Gastrointestinal: denies: abdominal pain, diarrhea, nausea, vomiting Genitourinary: reports: no symptoms reported Musculoskeletal: reports: muscle weakness. denies: back pain, neck pain Integumentary: reports: no symptoms reported Neurological: reports: loss of balance, tremors. denies: dizziness/vertigo, headache/migraines, slurred speech, syncope Psychiatric: reports: no symptoms reported Endocrine: reports: no symptoms reported Hematologic/Lymphatic: reports: no symptoms reported Allergic/Immunologic: reports: no symptoms reported All Other Systems: Reviewed and Negative Past History - Adult - PAST MEDICAL HISTORY-ADULT Review of Records: reports: Old Records Reviewed, Nursing Assessment Review, Medications Reviewed, Social history reviewed & non-contributory. Major Childhood Illnesses: reports: denies history Cardiovascular: reports: blood clots (hx of deep venous thrombosis & pulmonary embolism), CAD, HTN Respiratory: reports: sleep apnea Gastrointestinal: reports: GERD Genitourinary: reports: retention (urinary retention with elevated PSA), prostate cancer, other (Bladder problem) Musculoskeletal: reports: denies history Neurological: reports: Parkinson's, other (Diabetic neuropathy) Psychiatric: reports: denies history Endocrine/Immune: reports: Diabetes Diabetes Type: Type 2 Other Conditions: reports: denies history - PRIOR SURGERIES/PROCEDURES Surgical/Procedure History: reports: cardiac stent, orthopedic (extremity) ( internal fixation of the right ankle), joint replacement (knee replacement), other (transurethral resection of the prostates procedure) - IMMUNIZATION STATUS Childhood Immunizations: UTD Flu Vaccine: See Nurse Assessment - FAMILY HISTORY Family History: reviewed, not pertinent - SOCIAL HISTORY Smoking: denies Substance Use: denies Living Situation: family Physical Exam-General - PHYSICAL EXAM-ADULT Initial Vital Signs Reviewed: Yes - CONSTITUTIONAL General Appearance: appears well, alert, no apparent distress - EYES Eyes: PERRL/EOMI, pink conjunctivae - HEAD, EARS, NOSE, MOUTH & THROAT HENMT: moist mucous membranes - NECK Neck: non-tender, full range of motion, supple, normal inspection - RESPIRATORY Respiratory: chest non-tender, lungs clear, normal breath sounds - CARDIOVASCULAR Cardiovascular: normal peripheral pulses, bradycardia (59), irregularly irregular - GASTROINTESTINAL (ABDOMEN) Abdominal Exam: normal bowel sounds, non tender, soft - LYMPHATIC Lymphatic: no adenopathy - MUSCULOSKELETAL Back Exam: normal inspection Extremity: normal range of motion, normal inspection - SKIN Integumentary: normal color, normal turgor, warm/dry, abrasion(s) (left upper cheek) - NEUROLOGIC Neurologic: grossly normal, no motor/sensory deficits - PSYCHIATRIC Psych/Mental Status: normal mood/affect, normal thought content, normal thought process, oriented x 3 Progress - PLAN OF CARE/RESULTS Progress/Plan/Lab Results: Vital Signs - 8 hr 06/29/18 11:03 Temperature 97.4 F L Pulse Rate 59 L Respiratory Rate 16 Blood Pressure 162/79 O2 Sat by Pulse Oximetry 98 Result Diagrams: 06/29/18 11:15 06/29/18 11:15 - REASSESSMENT Reassessment #1 Time Reassessed: 12:43 Status: unchanged - EKG 1 Time of EKG reading by physician:: 11:08 EKG Read and Signed by:: Deven Brennan EKG Interpretation (*Must complete 3 of following elements*): Abnormal Rate: 61 Rhythm: sinus rhythm w/ sinus arrhythmia w/ occ pvc [place]: left (deviation) QRS: LBB, PVC's NV Interval: normal ST Wave: normal - XRAY 1 XRAY: Bilateral XRAY Study: Chest Impression: See EMR Report (EXAM: CHEST-PORTABLE 06/29/2018 HISTORY: ams TECHNIQUE: AP portable at 1151 COMMENT: The interstitial pulmonary edema and alveolar opacity which was present on 05/02/2017 is no longer present. The inspiration is actually less optimal on the current examination. There is a cardiac loop recorder projected over the left heart. IMPRESSION: No evidence of acute disease. Electronically signed by Addy Vazquez 06/29/2018 11:55 AM 06/29/18 1155 Interpreting Physician: Addy Vazquez MD Dictated Date/ Time: 06/29/18 1154 cc: Deven Brennan MD; Andry Turner DO) - CT/MRI 1 CT Study: Head Impression: See EMR Report (CT HEAD W/O CONTRAST - 06/29/2018 INDICATION: Head injury COMPARISON: 12/17/2016 FINDINGS: There is a new focal round hypodensity at the anterior pole of the left thalamus. Otherwise stable diffuse cerebral atrophy. Stable periventricular white matter chronic microvascular disease. The skull is intact. The sinuses are grossly clear. IMPRESSION: Possible recent lacunar infarction to the left thalamus. Consider further evaluation with a brain MRI. This exam was performed using automated exposure control, adjustment of mA or kV according to patient size, and/or use of iterative reconstruction technique Electronically signed by Geronimo Jonas 12:05 PM 06/29/18 1205 Interpreting Physician: Geronimo Jonas MD Dictated Date/Time: 06/29/18 1201 cc: Deven Brennan MD; Andry Turner DO) - CONSULTS/PCP/HOSPITALIST Notification #1 *Consult/PCP/Hospitalist*: dr turner pcp Time Discussed: 12:43 (pt is to weak to do ADL's) Reason/Comments: phone consult to admit Consult Disposition: Admit Departure - Departure Date of Disposition Decision: 06/29/18 Time of Disposition Decision: 12:55 DIAGNOSIS: Lacunar infarction, Weakness generalized, Atrial fib/flutter, transient Disposition: ADMITTED INPATIENT 09 Certified Medical Emergency: Emergent Condition: Stable Referrals and Follow-Ups: Andry Turner DO [Primary Care Provider] - - Critical Care Note This patient required my direct & personal management of CC.: No Attestation - Physician/ RIC Attestation Patient care was provided by Advanced Practice Provider:: No The physician spent face to face time with patient:: Yes Advanced Practice Provider documentation review:: Supervising physician onsite and consulted in the evaluation and care of this patient. The physician did have a face to face encounter with the patient. This chart was documented by the indicated scribe, (Tomeka Caceres Scribe) and accurately reflects the services I performed and decisions made by me, Deven Brennan MD, as attested by the provider's signature.
--- NOTE | 2018-06-30 12:56 | ECHO REPORT ---
ORDER DATE: 06/30/2018 INDICATION: CVA. FINDINGS: 1. Right atrium appears normal in size. 2. Mild tricuspid regurgitation. RV systolic pressure of 34. 3. Normal RV size and systolic function. 4. No significant pulmonic insufficiency. 5. Normal left atrial size with mild left atrial enlargement with a dimension of 4.2 cm and a volume index of 29. 6. No mitral valve prolapse. Mild mitral regurgitation. 7. Normal LV size, end-diastolic dimension of 4.4 cm. Mild left ventricular hypertrophy. The interventricular septal wall thickness is very difficult to measure, but the posterior wall appears to be 1.3 cm. Normal LV systolic function with an estimated EF of 55%. Definity echo contrast was used on this study. 8. Aortic valve appears somewhat sclerotic, but there does not appear to be any clear evidence of stenosis. The mean gradient was 8.3. The valve is trileaflet. There is trace insufficiency. 9. The aorta appears normal in visualized segments. 10. No pericardial effusion seen. cc: MD Andry Fischer DO
[2018-06-30] MEDS: NS 1,000 ML IV SCH (13:08)
[2018-06-30] MEDS: GLUCOPHAGE PO SCH ×2 (17:28→20:15)
[2018-06-30] MEDS: PRINIVIL PO SCH ×2 (17:29→21:26)
--- NOTE | 2018-06-30 19:28 | CONSULTATION ---
DATE OF CONSULTATION: 06/30/2018 HISTORY OF PRESENT ILLNESS: Mr. Masterson is 87 years old. History is taken from his attentive and daughter at the bedside and from review of available hospital records. There is a report of forgetfulness going on for at least a few years, more noticeable within the last year. He could not perform a ceremony properly a few years ago. He has been unable to provide accurate directions at times to familiar restaurants and to his bank. has taken over supervision of his medicines. He has had unsteady gait for some time. He has had several falls. He has hit his head but has never been knocked out unconscious. He has broken an ankle. He needs knee surgery, according to family. He had a predominantly right-sided tremor noticed sometime ago, possibly 10 years or longer ago. Eventually, there was a diagnosis of Parkinson disease, and he started Sinemet. Family is not sure when Sinemet dose was last changed. Hospital records show his current Sinemet dose at 25/100 b.i.d. Family does not recall him taking medicine for management of Parkinson disease other than Sinemet. Family believes he seemed improved when Sinemet was added, but they do not provide report of major benefit. He has had some dizziness, worse in recent months. There have been some features of vertigo. He was attending a session at [facility] 3 days ago. When he went in for that management, he was walking about as well as usual, carrying on appropriate conversation, and seemed to be himself mentally. When he came out of that testing, he required a little bit more help with gait, and he seemed withdrawn, not speaking spontaneously, answering direct questions only sometimes and only with very short responses. Daughter drove him to a restaurant and he sat down, seemed able to read the menu and choose what he wanted, but when the accounts payable administrator came, he pointed at the item rather than saying the words. He was able to communicate with head nods and gestures so that his options were chosen correctly. He did not eat. He had more difficulty getting up after that session at the restaurant. He did not complete the balance testing. At the restaurant, daughter reports he was able to bow his head and say an audible prayer, a rote prayer that he recites from memory automatically. He has seemed a little bit brighter at times today but still has not had a lot of verbal communication. DIAGNOSTIC DATA: Workup here includes noncontrast CT of the head showing diffuse ischemic change and report of left thalamic lacune which was not noted on 2017 scan. Family reports brain MRI done in [place] a year or so ago. They do not recall being told any specific significant findings after that scan. Lab shows slight anemia. Blood sugars 140s-190s. Nothing else remarkable on chemistry profile. MEDICATIONS: reports he has 18 medications. She supervises that closely, but cannot name them. She provides hi morning dose and sometimes allows him to take the evening dose on his own, but she always checks to make sure he took the dose. The current chart shows home medicines include carbidopa/levodopa 25/100 b.i.d. as above, amlodipine, vitamin C, aspirin 81 mg daily, bicalutamide, carvedilol, clopidogrel 75 mg daily, furosemide, garlic, glimepiride, glucosamine product, leuprolide, lisinopril, metformin, modafinil 200 mg b.i.d., nitroglycerin sublingual p.r.n. , Lyrica 75 mg at bedtime, rosuvastatin, Janumet, Co Q10. There are 20 items on the hospital computer home medication list. PHYSICAL EXAMINATION: Mr. Masterson is supine, awake, alert. He is attentive at times. He answered simple questions correctly. He followed simple commands. He followed commands requiring right/left distinction inconsistently. His speech is reasonable volume, not very parkinsonian, not significantly dysarthric. I did not test his cognitive function thoroughly. Head and neck are unremarkable. Visual vazquez are full based on gross confrontational finger counting. He has good lateral eye movement conjugately. Upgaze is diminished. Forehead wrinkling is symmetric. Lower facial motility appears equal, and the right nasolabial fold is deeper than the left, but right corner of the mouth often rides lower than the left. Tongue is midline. Palate is midline. Shoulder shrug is good bilaterally. Strength is normal in the arms and legs. Tone is symmetric. There is no cogwheeling or rigidity. I did not notice any tremor during my time at the bedside. He did well on [id number] testing. He responded to pinprick appreciation equally on the left and right. 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 Plantar responses silent bilaterally. Reflexes are absent at the ankles. I did not test his gait. IMPRESSION: 1. Recent reduced verbal communication. He was able to speak, apparently able to understand language, but simply did not respond verbally at the same level as baseline. He may have become withdrawn as part of the central nervous system syndrome with baseline dementia, parkinsonism, gait difficulty, and question of sensory overloads. There could be medication effect. At this point, I do not see anything definite. 2. Imaging evidence of widespread microischemic change and possible recent left thalamic lacune. This would not generally explain his recent change in verbal communication. He was apparently not truly anarthric and never truly unable to respond, but just did not respond verbally as much as his baseline. 3. Parkinsonism. If there has not been definite benefit with current antiparkinsonian regimen, we might reduce or hold Sinemet dose and follow clinically. If he appears more parkinsonian without Sinemet on board, Sinemet can be resumed. I do not know if he has had trials with other antiparkinsonian medications. 4. Baseline cognitive impairment, likely major neurocognitive disorder/ dementia. If he has not had previous trial, a cholinesterase inhibitor would be reasonable, when practical, not urgent. I would consider trying to reduce medicines before adding cholinesterase inhibitor. 5. I do not have any urgent suggestions. As above, would consider reducing or holding Sinemet, consider reducing or stopping any other medications that are not essential and then later consider cholinesterase inhibitor trial. I think it would be reasonable to plan a brain MRI when practical, not urgent, and we might get report from [facility] in [place] for comparison. If not checked recently as an outpatient, reasonable to screen for hypothyroidism in patient with mental decline, gait difficulty, periods of apparent withdrawal. Thanks for asking Neurology to see Mr. Masterson. cc: MD Andry Perera III, DO MTDD
[2018-06-30] MEDS: ASPIRIN PO SCH (20:14)
[2018-06-30] MEDS: PLAVIX PO SCH (20:15)
[2018-06-30] MEDS: LASIX PO SCH (20:15)
[2018-06-30] MEDS: NORVASC PO SCH (20:15)
[2018-06-30] MEDS: SINEMET 25/100 PO SCH ×2 (20:15→21:26)
[2018-06-30] MEDS: CASODEX PO SCH (20:16)
[2018-06-30] MEDS: COREG PO SCH ×2 (20:16→21:26)
[2018-06-30] MEDS: CRESTOR PO SCH (21:26)
[2018-07-01] MEDS: SINEMET 25/100 PO SCH ×2 (08:43→23:12)
[2018-07-01] MEDS: GLUCOPHAGE PO SCH (08:43)
[2018-07-01] MEDS: LASIX PO SCH (08:44)
[2018-07-01] MEDS: ASPIRIN PO SCH (08:44)
[2018-07-01] MEDS: PLAVIX PO SCH (08:54)
[2018-07-01] MEDS: CASODEX PO SCH (08:57)
[2018-07-01] MEDS: COREG PO SCH ×2 (12:03→23:12)
[2018-07-01] MEDS: PRINIVIL PO SCH ×2 (14:50→23:12)
[2018-07-01] MEDS: NORVASC PO SCH (14:54)
[2018-07-01] MEDS: NS 1,000 ML IV SCH ×2 (17:16→18:52)
[2018-07-01] MEDS ORDERED: NOVOLOG MIX 70/30 SUBQ SCH (18:30)
--- NOTE | 2018-07-01 18:31 | PROGRESS NOTE ---
DATE: 07/01/2018 INDICATION FOR PROLONGED HOSPITALIZATION: Ongoing evaluation for acute neurologic decline thought to be due to left thalamic infarct. I very much appreciate the opinion of neurology. Clinical note dated 06/29 is reviewed at the bedside with the patient and friends of the family. Neurologic consultative note is reviewed at the bedside with the patient's and friends of the family. Cardiac echocardiogram is obtained demonstrating mild TR, mild MR and some early aortic sclerotic changes without stenosis. PA pressure at 34, mild left atrial enlargement, mild LVH, EF at 55%, no evidence of pericardial effusion is noted. Additional laboratory including outstanding urinalysis is positive for 30,000 to 40,000 colony-forming units of gram-positive cocci. VITALS: Blood pressure 187/40, respirations at 18, pulse at 66, temperature at 97.6 degrees, T- max at 98.6 degrees, saturating 96% on room air, alex at 91% earlier this morning at 8:39. Telemetry strips are reviewed demonstrating the presence of sinus rhythm with 1st degree AV block, increased PACs. There is a 8 beat run of nonsustained ventricular tachycardia which is noted at 2333, no report of symptomatology. I's and O's 1214 in and 900 out for +314. Patient is noted to have pulled out his Lara. We will be abstaining from replacing this. PHYSICAL EXAMINATION: HEENT: Unremarkable. Cardiovascular: Irregularly irregular versus sinus with increased ectopy. Lungs: Clear but shallow breath sounds are appreciated. Abdomen: Soft without areas of guarding or rebound. Extremities: Benign without clubbing, cyanosis, or edema. IMPRESSION: 87-year-old with radiographic findings suggestive of acute versus subacute left thalamic event. Again I have reiterated to the family I am uncertain as to whether this truly represents a cerebrovascular accident or whether this might be indicative of metastatic lesion to the brain. I appreciate neurology's opinion and insight. I do think that based on his historical benefit from the initiation of dopamine agonist we will continue with the Sinemet, but I did express to the patient and the that further titration off of nonessential medications may be of benefit. His hemoglobin A1c noted to be 7.0 with an estimated/average blood glucose at 154 mg/dL. Historical hemoglobin A1c dating back to 2013 are noted to be 7.1, 7.1 and current admission at 7.0. We will continue to follow clinically. We discussed placement either at rehab or long-term placement versus returning to home with hospice. Will continue to follow clinically in this regard. There are no new and/or additional recommendations. Initiation of Rocephin 1 g daily 1st dose tonight. The and patient understand the course of treatment and plan. No further issues at this time. Note is dictated on the evening of admission. cc: Andry Turner DO
[2018-07-01] MEDS: ROCEPHIN 1 GM in NS 50 ML IV SCH (18:50)
[2018-07-01] MEDS: CRESTOR PO SCH (23:12)
[2018-07-02] MEDS: NOVOLOG MIX 70/30 SUBQ SCH ×3 (08:10→17:16)
[2018-07-02] MEDS: SINEMET 25/100 PO SCH ×2 (08:57→20:53)
[2018-07-02] MEDS: CASODEX PO SCH (08:57)
[2018-07-02] MEDS: COREG PO SCH ×2 (08:57→20:53)
[2018-07-02] MEDS: NS 1,000 ML IV SCH ×2 (08:57→13:11)
[2018-07-02] MEDS: PRINIVIL PO SCH ×2 (08:57→20:53)
[2018-07-02] MEDS: PLAVIX PO SCH (08:57)
[2018-07-02] MEDS: NORVASC PO SCH (08:57)
[2018-07-02] MEDS: LASIX PO SCH (08:57)
[2018-07-02] MEDS: ASPIRIN PO SCH (08:57)
[2018-07-02] MEDS ORDERED: INSULIN PEN NEEDLES ONE (09:08)
[2018-07-02] MEDS: ROCEPHIN 1 GM in NS 50 ML IV SCH (18:04)
[2018-07-02] MEDS: CRESTOR PO SCH (20:53)
[2018-07-03] MEDS: NS 1,000 ML IV SCH ×3 (05:13→16:17)
--- NOTE | 2018-07-03 07:22 | EKG Report ---
Test Performed on : 07/01/2018 06:34:47 AM Test Reason : PAF history, NSR with marked ectopy, bradycardia Blood Pressure : / mmHG Vent. Rate : 065 BPM Atrial Rate : 065 BPM P-R Int : 174 ms QRS Dur : 154 ms QT Int : 502 ms P-R-T Axes : 065 -59 109 degrees QTc Int : 522 ms Sinus rhythm. with premature atrial complexes. Left axis deviation Left bundle branch block Abnormal ECG When compared with ECG of 29-JUN-2018 11:08, (Unconfirmed) premature ventricular complexes. are no longer present premature atrial complexes. are now present Unconfirmed Result
--- NOTE | 2018-07-03 07:33 | PROGRESS NOTE ---
DATE: 07/03/2018 The patient was seen yesterday morning but no progress note was dictated. This morning, the patient is found resting. Evening rounds will be performed with a short addendum. The patient is noted to have positive Enterococcus faecalis findings on urinalysis, although less than 50,000 colony-forming units were noted. He was empirically started on Rocephin. We will be transitioning him to Levaquin orally 500 mg once daily for 5 days. We will continue to follow in this regard. He has remained somewhat hypertensive, his blood pressure as high as 188/86. We have also recently transitioned him to b.i.d. fixed dose insulin at 5 units. Laboratory, specifically glucoses ranging between 158 up to 278, we will be adjusting that to 7 units b.i.d. It has been several days since he has had laboratory. A CMP and a CBC will be ordered, as well as a chest x-ray and EKG. I anticipate placement over the next 24 to 48 hours regarding poststroke event. The exact facility is uncertain at this time. I did discuss with the son and the patient yesterday options including a [facility] facility, a local facility, and/or long-term placement. I certainly feel that rehab would be appropriate. However, should the patient continue to decline clinically, then long-term placement and/or home hospice may be a more appropriate option. We will await any further recommendations today. I suspect that there is bed availability today or tomorrow. The patient will likely be discharged. There are no new and/or additional recommendations at this time. Evening rounds with additional comment are likely to follow. cc: Andry Turner DO
[2018-07-03 08:49] LABS: AGAP 11; ALB/GLOB RATIO 1.6; ALBUMIN 3.5 g/dL (3.5-5.0); ALKALINE PHOSPHATASE 58 U/L (32-122); BUN 25 mg/dL (8-22); CALCIUM 8.6 mg/dL (8.8-10.2); CHLORIDE 107 mmol/L (98-107); COSMO 294; CREATININE 0.9 mg/dL (0.7-1.2); ESTIMATED GFR > 60; GLUCOSE 184 mg/dL (70-104); GOT 28 U/L (10-34); GPT 25 U/L (10-44); POTASSIUM 3.3 mmol/L (3.5-5.1); SODIUM 143 mmol/L (136-145); TCO2 25 mmol/L (25-35); TOTAL BILIRUBIN 0.19 mg/dL (0.20-1.00); TOTAL PROTEIN 5.7 g/dL (6.3-8.3)
[2018-07-03] MEDS: LEVAQUIN PO SCH (10:33)
[2018-07-03] MEDS: LASIX PO SCH (10:33)
[2018-07-03] MEDS: SINEMET 25/100 PO SCH ×2 (10:33→21:39)
[2018-07-03] MEDS: NORVASC PO SCH (10:33)
[2018-07-03] MEDS: COREG PO SCH ×2 (10:33→21:39)
[2018-07-03] MEDS: CASODEX PO SCH (10:33)
[2018-07-03] MEDS: ASPIRIN PO SCH (10:34)
[2018-07-03] MEDS: PLAVIX PO SCH (10:36)
[2018-07-03] MEDS: PRINIVIL PO SCH ×2 (10:36→21:39)
[2018-07-03] MEDS ORDERED: NOVOLOG MIX 70/30 SUBQ SCH (17:00)
--- NOTE | 2018-07-03 18:47 | PROGRESS NOTE ---
DATE: 07/03/2018 INDICATION FOR PROLONGED HOSPITALIZATION: Awaiting rehab versus long-term placement. Patient having had a left thalamic CVA. He is clinically improved and hemodynamically stable at this time. He was transitioned off of Rocephin to Levaquin based on Enterococcus positive UTI. No complaints or concerns this evening. The is at the bedside with the patient. VITAL SIGNS: Blood pressure 152/60, pulse at 52, temperature at 97.5 degrees, saturating 93% on room air. Cumulative I's and O's for this hospitalization, 5,873 in and 4,610 out for +1,263. LABORATORY: Additional laboratory obtained this morning, primarily a chemistry demonstrating sodium 143, potassium at 3.3. Magnesium is pending, if available. Chloride 107, bicarb 25, BUN and creatinine at 25 and 0.9. Sugars are ranging between 143 and 257, this on premixed insulin at 7 units b.i.d. AST and ALT have normalized. EKG obtained 07/01 is reviewed. OBJECTIVE: HEENT: Unremarkable. Cardiovascular: Irregularly irregular rhythm versus sinus rhythm with increased ectopy. There is a 4+ systolic murmur at the right upper sternal border noted. Lungs: Decreased respiratory/breath sounds throughout without any wheezes, rhonchi, or rales. Abdomen: Distended with normoactive bowel sounds. No focal areas of guarding, tenderness, or rigidity. Extremities: Without cyanosis or edema. Neurological: Cranial nerves 2-12 are not assessed. IMPRESSION: This is an 87-year-old status post probable central left-sided thalamic event mid last week. He continues to improve. In the interim he has been identified with nonspecific abnormality of the urine, growing out enterococcus for which he is receiving oral antibiotics, isolated episode of nonsustained 8 beat run of ventricular tachycardia. There have been no further neurologic opinions and/or consultative notes. We now await final disposition and placement. I have advised the family and the patient that he is not a candidate to return home to normal activities of daily living. He will likely need a period of rehab either at a speciality facility which would be optimal or a local rehab facility prior to returning to home. We are offering this option with the understanding that if he was to re-present to the emergency room in the future for a similar problem that rehabilitation would not likely be a viable option. We did discuss other options including long-term placement such as long term and even home hospice. Based on his hypokalemia, a magnesium is pending. We will be providing him 40 mEq of IV potassium supplement with interval followup as indicated. The patient and the understand the course of treatment and plan. No further issues at this time. Note is dictated on the evening of rounds. cc: Andry Turner DO
[2018-07-03] MEDS: POTASSIUM CHLORIDE 20 MEQ/SWI 20 MEQ/100 ML IVPB IV SCH ×2 (19:01→21:36)
[2018-07-03] MEDS: CRESTOR PO SCH (21:39)
[2018-07-04] MEDS ORDERED: NOVOLOG MIX 70/30 SUBQ SCH (08:00)
[2018-07-04] MEDS: SINEMET 25/100 PO SCH (08:04)
[2018-07-04] MEDS: PLAVIX PO SCH (08:04)
[2018-07-04] MEDS: PRINIVIL PO SCH (08:04)
[2018-07-04] MEDS: NORVASC PO SCH (08:04)
[2018-07-04] MEDS: ASPIRIN PO SCH (08:05)
[2018-07-04] MEDS: LASIX PO SCH (08:05)
[2018-07-04] MEDS: COREG PO SCH (08:05)
[2018-07-04] MEDS: CASODEX PO SCH (08:06)
[2018-07-04] MEDS: LEVAQUIN PO SCH (08:08)
--- NOTE | 2018-07-04 09:01 | Carotid Study ---
DATE: 06/30/2018 PROCEDURE: Carotid duplex imaging. REFERRING PHYSICIAN: Dr. Andry Turner INTERPRETING PHYSICIAN: Mitchell Jameson MD TECH: [place] INDICATIONS: CVA comparison from 09/17/2016. EQUIPMENT: [employer]id E9 ultrasound system with a 9LD transducer. OBSERVED DATA RIGHT LEFT Brachial Blood Pressure Carotid Pulse Bruits: Carotid/Sub DIAGRAM OF ULTRASOUND IMAGING R L RIGHT INT EXT INT EXT LEFT Paco (cm/s) Paco (cm/s) Subclavian 101/0 Subclavian 113/0 CCA Proximal 63/9 CCA Proximal 88/6 CCA Distal 72/8 CCA Distal 85/13 Bulb 67/10 Bulb 65/10 ICA Proximal 63/8 ICA Proximal 61/8 ICA Mid 69/11 ICA Mid 50/12 ICA Distal 62/9 ICA Distal 78/13 ECA 75/0 ECA 85/2 Vertebral 48/8 Antegrade Vertebral 41/13 Antegrade ICA/CCA Ratio 0.97 ICA/CCA Ratio 0.89 % Stenosis 0%-39% % Stenosis 0%-39% FINDINGS: Some atherosclerosis noted to bilateral carotid arteries but no hemodynamically significant flow-limiting stenosis noted. There is stable from previous study. Both vertebral arteries were antegrade flow. INTERPRETATION: Stable bilateral carotid ultrasound study without hemodynamically significant flow-limiting stenosis noted by strict velocity criteria. cc: MD Andry Khoury DO
[2018-07-04 09:17] LABS: BASO# 0.03 X1000 (0.0-0.2); BASO% 0.3 % (0.0-0.8); EOS# 0.55 X1000 (0.0-0.7); HEMATOCRIT 41.1 % (42.0-52.0); HEMOGLOBIN 13.7 g/dL (14.0-18.0); IMM GRAN# 0.03 X1000 (0.0-0.04); IMM GRAN% 0.3 % (0.0-0.5); LYMPH# 1.58 X1000 (1.2-3.4); LYMPH% 14.4 % (20.5-51.1); MCH 29.4 PG (27-31); MCHC 33.3 g/dL (33-37); MCV 88.2 FL (81-99); MONO# 0.74 X1000 (0.11-0.59); MONO% 6.7 % (1.7-9.3); MPV 10.3 FL (7.4-10.4); NEUT# 8.05 X1000 (1.4-6.5); NEUT% 73.3 % (42.2-75.2); PLT 167 X1000 (130-400); RBC 4.66 XMIL (4.7-6.1); RDW 12.7 % (11.5-14.5); WBC 10.98 X1000 (4.8-10.8)
--- NOTE | 2018-07-04 10:54 | EKG Report ---
Test Performed on : 07/04/2018 10:20:53 AM Test Reason : Pre-rehab placement Blood Pressure : / mmHG Vent. Rate : 069 BPM Atrial Rate : 069 BPM P-R Int : 148 ms QRS Dur : 164 ms QT Int : 494 ms P-R-T Axes : 072 -54 121 degrees QTc Int : 529 ms Sinus rhythm. with occasional premature ventricular complexes. and premature atrial complexes. Left axis deviation Left bundle branch block Abnormal ECG When compared with ECG of 01-JUL-2018 06:34, premature ventricular complexes. are now present Unconfirmed Result
[2018-07-04] MEDS: NS 1,000 ML IV SCH (11:09)
[2018-07-04 11:58] VITALS: BP 125/80
--- NOTE | 2018-07-04 13:34 | DISCHARGE SUMMARY ---
ADMISSION DATE: 06/29/2018 DISCHARGE DATE: 07/04/2018 DISPOSITION: The patient is to be transferred to inpatient rehab at [facility] facility in [place]. DISCHARGE DIAGNOSES: 1. Left-sided thalamic cerebrovascular accident status post cardiac echo and carotid ultrasound. Without definitive cause. There is evidence of non hemodynamically significant peripheral vascular disease on carotid ultrasound. Cardiac echocardiogram demonstrating mild left ventricular hypertrophy with ejection fraction of 55%. Early sclerotic changes of the aortic valve without evidence of stenosis. PA pressures at 33. Mild left atrial enlargement with dimension at 4.2 cm and a volume index of 29. 2. Abnormal urine with enterococcus. Started initially on Rocephin pending return of urinalysis, then transitioned to oral Levaquin. He has tolerated two p.o. doses with an additional five days anticipated. 3. Hypokalemia, status post IV replacement. 4. Anemia without iron deficiency anemia. 5. Hyperglycemia as part of his diabetes, historically on oral medications transitioning to fixed dose b.i.d. insulin. Hemoglobin A1c on admission 7.0, being discharged on 10 units b.i.d. of NovoLog. It is my medical opinion that the basal and bolus insulin dosing would be too problematic and high risk for hypoglycemia. Janumet which has historically providing him adequate control is now cost prohibitive. 6. Transaminitis, resolved on admission. 7. Hypocalcemia, stable. 8. Hypoproteinemia, stable. PROCEDURES DURING ADMISSION: 1. CT scan of the head demonstrating possible/recent lacunar infarct to the left thalamus. MRI of the brain was not pursued secondary to history of implantable loop monitor in early May 2018. 2. Carotid Doppler ultrasound 06/30/2018 without evidence of hemodynamically significant disease but the presence of peripheral vascular disease is noted. 3. Cardiac echo demonstrating normal right atrium. Mild tricuspid regurgitation. PA pressure at 34. Mild left atrial enlargement at 4.2 cm. Mild MR. mild LVH. EF of 55% and early aortic sclerosis but without evidence of stenosis. No pericardial effusion is noted. CONSULTATIONS DURING ADMISSION: Neurology. HOSPITAL COURSE: Patient was admitted on 06/29/2018 after having suffered a fall at home. As part of evaluation and examination in the emergency room, a CT scan of the head was performed demonstrating appearance of a new lesion within the left thalamus presumed to be recent lacunar infarct, however, with the patient's history of metastatic cancer, it has not been definitively ruled out as potential metastatic lesion. He was admitted for neurologic consultation and cardiac echo and further workup. Carotid ultrasound and cardiac echo as per chart. Neurology opinion as per chart. Urinalysis obtained demonstrating 40,000 colony-forming units of enterococcus. He was started on IV and subsequently transition to oral Levaquin. Based on the simplicity of pharmacological regime, he was transitioned off of cost prohibitive Janumet to injectable b.i.d. dosing. Further adjustment of insulin may be indicated in rehab and as an outpatient. He did experience a single episode of nonsustained ventricular tachycardia on 06/29/2018 at 11:33 p.m. He was asymptomatic and has had no further recurrences since then. He has been in a sinus rhythm with increased atrial and ventricular dysrhythmia. He has not complained of any chest pain or worsening shortness of breath. On the morning of discharge, vitals are stable. Blood pressure 125/80, pulse at 51, respiratory rate at 16, temperature at 97.5 degrees, saturating 96% on room. DISCHARGE MEDICATIONS: Amlodipine 5 mg once daily, aspirin 81 mg once daily, Casodex 50 mg once daily, Sinemet 100/25, 1 p.o. b.i.d., carvedilol 25 mg b.i.d., Plavix 75 mg once daily status post stent placement in April 2017, Lasix 40 mg once daily, NovoLog insulin 70/30 10 units subcutaneously b.i.d., Levaquin 500 mg once daily for 5 additional days, lisinopril 20 mg once daily, Crestor 10 mg once daily. Stopping vitamin C, stopping garlic, stopping Amaryl, stopping Osteo Bi-Flex, stopping Eligard, stopping Glucophage, stopping Provigil. Continuing with sublingual nitroglycerin p.r.n. Stopping Lyrica, stopping Janumet, and stopping CoQ 10. DISPOSITION: Patient is to be transferred via ambulance to inpatient facility for post stroke rehab in [place] at the [facility]. The family and the patient understand the course of treatment and plan. I have asked the family to notify me when he is discharged from rehab back to home. We will likely want to see him in his post hospital post rehab period to review hospitalization and improvement following rehab. No additional issues at this time. Note is dictated on the afternoon of discharge. cc: Andry Turner DO
== END 2018-07-04 13:27 | DRG 64 ==
LOC: SUPCPDRO → ED 10:47 → EDIPHOLD 13:31 → 4N 17:39
PROVIDERS: ADMIT Internal Medicine; ATTEND Internal Medicine
CPT/HCPCS: 70450; 71010; 71045; 80053; 80061; 81001; 82550; 82553; 82607; 82728; 82948; 83036; 83540; 83550; 83721; 83735; 84484; 85025; 85610; 85730; 87077; 87088; 87186; 92523; 93005; 93010; 93306; 93880; 94660; 94761; 96361; 96374; 96375; 97116; 97162; 97166; 97530; 97535; 99285; A9270; C8929; J0696; J2270; J2405; J3480; J7030; Q9957; S0028; XXXXX